=== PATIENT | male | born 1985 | race Caucasian/White ===

== ENCOUNTER 2020-09-14 12:29 | Outpatient (REF) | payer OTHER, SELFPAY ==
[2020-09-18 14:22] LABS: Acrosom Defect 23.5 %; Appearance Normal; Container Type 50 mL Conical; Double Forms 1.5 %; Head Shape Abnormal 21.5 %; Motile/Ejaculate 8.4 x10(6) (>=9.0); Motile/mL 1.4 x10(6) (>=6.0); Motility 15 % (>=40); Sperm/mL 9.2 x10(6) (>=15.0); Study Type Semen; Supravital Stain 32 % live (>=58); Tail Defect 42.5 %; pH 8.5 (>=7.2)
== END 2020-09-14 12:49 ==
LOC: LBN 12:29
PROVIDERS: PCP Student in an Organized Health Care Education/Training Program; Visit Provider Obstetrics & Gynecology Gynecology
DX: Z31.41 Encounter for fertility testing (principal)
CPT/HCPCS: 89240; 89310

== ENCOUNTER 2021-01-09 13:37 | Outpatient (CLI) | payer OTHER, SELFPAY ==
--- NOTE | 2021-01-09 13:00 | DI.RAD_ITS ---
Exam(s) XR KNEE RT 3V AP,LAT,DEANA EXAM: XR KNEE RT 3V AP,LAT,DEANA CLINICAL HISTORY: RIGHT KNEE PAIN. TECHNIQUE: 2D digital imaging was performed. COMPARISON: No exams were available for comparison FINDINGS: BONES: No acute fracture is present. No bony destructive lesion is seen. JOINTS: The knee is normally aligned. No joint effusion is seen. Joint spaces are well maintained. There is a focal area of spurring at the medial patellar facet. There is spurring at the patellar t endon insertion on the tibial tubercle. SOFT TISSUE: Normal. IMPRESSION: Spurring at the medial patellar facet. DATA REPOSITORY: RADIATION DOSE DELIVERED:
== END 2021-01-09 13:38 | disposition home or self-care (01) ==
LOC: DIORS 13:38
PROVIDERS: PCP Student in an Organized Health Care Education/Training Program; Referring Provider Student in an Organized Health Care Education/Training Program; Visit Provider Student in an Organized Health Care Education/Training Program
DX: M25.561 Pain in right knee (principal); M25.761 Osteophyte, right knee
CPT/HCPCS: 73562

== ENCOUNTER 2021-03-09 03:24 | Outpatient (CLI) | payer OTHER, SELFPAY ==
[2021-03-09 07:37] LABS: Abs Immature Grans 0.02 10^3/uL (0.0-0.06); Absolute Basophil Count 0.02 10^3/uL (0.0-0.2); Absolute Eosinophil Count 0.07 10^3/uL (0.0-0.7); Absolute Lymphocyte Count 0.48 10^3/uL (1.2-3.4); Absolute Neutrophil Count 1.61 10^3/uL (1.2-6.7); Basophils % 0.7; Eosinophils % 2.4; HCT 46.2 % (40.0-50.0); HGB 15.8 g/dL (13.5-17.5); Immature Grans % 0.7; Lymphocytes % 16.6; MCH 29.9 pg (27.0-33.0); MCHC 34.2 % (32.0-36.0); MCV 87.5 fL (80-95); MPV 8.8 fL (8.0-11.0); Monocytes % 24.1; Neutrophils % 55.5; Nucleated RBC 0 %; Platelet Count 224 10^3/uL (130-400); RBC 5.28 10^6/uL (4.36-5.78); RDW 11.9 % (11.8-14.1); RDW-SD 38.4 fL
[2021-03-09 08:24] LABS: ALT 72 U/L (16-63); AST 35 U/L (15-37); Albumin 4.2 g/dL (3.4-5.0); Alkaline Phosphatase 76 U/L (46-116); Bilirubin, Direct 0.3 mg/dL (0.0-0.2); Bilirubin, Total 1.2 mg/dL (0.2-1.0)
[2021-03-09 21:47] LABS: Calculated LDL 70 mg/dL (<100); Cholesterol 167 mg/dL (<200); HDL Cholesterol 53 mg/dL (40-60); Triglyceride 221 mg/dL (<150)
[2021-03-12 11:18] LABS: Varicella IgG Antibody Positive (See Note)
[2021-06-28 14:51] LABS: Stratify JCV Antibody POSITIVE (Negative)
== END 2021-03-09 03:25 | disposition home or self-care (01) ==
LOC: LBO 03:24
PROVIDERS: PCP Student in an Organized Health Care Education/Training Program; Visit Provider Psychiatry & Neurology Neurology
DX: G35 Multiple sclerosis (principal); Z13.220 Encounter for screening for lipoid disorders
CPT/HCPCS: 36415; 80061; 80076; 86787; 85025

== ENCOUNTER 2021-03-22 03:04 | Outpatient (CLI) | payer OTHER, SELFPAY ==
--- NOTE | 2021-03-22 09:00 | DI.MRI_ITS ---
Exam(s) MR LUMBAR SPINE WO EXAM: MR LUMBAR SPINE WO CLINICAL HISTORY: Evaluate stenosis; compare to 2019 MRI,WORSENING BACK PAIN DESPITE PT,M54.5. TECHNIQUE: Multiplanar multisequence MRI of the Lumbar spine was performed. COMPARISON: There are no plain films lumbar spine available time this MRI interpretation FINDINGS: Five lumbar vertebrae are presumed. Conus medullaris is at L1-2 level. There is no evidence of conus mass nor subjacent clumping of intr athecal nerve roots to suggest arachnoiditis. The distal thecal sac appears unremarkable.There is no evidence of Tarlov intrasacral cysts nor other significant findings within the sacral canal Bones:There are no fractures nor ominous osseous lesions in the lumbar vertebral bodies and visualize d sacrum. There is no abnormal permeated of marrow pattern. With respect to the individual levels... T12-L1: Unremarkable L1-2: Normal disc height and signal. No disc herniation nor central canal stenosis.No foraminal steno sis L2-3: Normal disc height. No disc herniation nor central canal stenosis.No foraminal stenosis.No face t arthropathy. L3-4: Normal disc height and signal. There is, however, asymmetric lateral bulging of the annulus la terally on the left side at and lateral to the exiting left neural foramen. There does not appear to be prominent left-sided foraminal stenosis at this level. No foraminal stenosis on the right side. Central canal dimensions are lower normal. Mild degenerative changes in the facet joints. . L4-5: Preserved disc height and signal. Broad relatively symmetrical annular bulging which results i n moderate central spinal canal stenosis which is related to the broad annular bulging, short AP dime nsions of the pedicles and degenerative changes in the facet joints. There is no prominent ligamentu m flavum hypertrophy. There is mild-moderate bilateral foraminal stenosis at this level mostly relat ed to the bulging annulus within both exiting neural foramina. L5-S1: Preserved disc height and signal. There is annular bulging and a superimposed central subliga mentous disc bulge which contacts the anterior thecal sac but without prominent indentation of the th ecal sac. Central canal dimensions are lower limits normal at this level. There is an element of mi ld-moderate foraminal stenosis on the left side at this level. Minimal if any significant foraminal stenosis on the right side. No prominent facet arthropathy. Soft tissues: paraspinal soft tissues appear unremarkable. IMPRESSION: 1. Findings of the lower 3 levels as described above. 2. There is significant central spinal canal stenosis at L4-5 level which is due to a combination of broad annular bulging, short AP dimensions the pedicles, and degenerative changes in both facet joint s (no ligamentum flavum hypertrophy evident at this level). There is also mild-moderate bilateral fo raminal stenosis at this level. 3. Other findings at L3-4 and L5-S1 levels as described above. DATA REPOSITORY:
== END 2021-03-22 03:24 ==
PROVIDERS: PCP Student in an Organized Health Care Education/Training Program; Visit Provider Student in an Organized Health Care Education/Training Program
DX: M51.27 Other intervertebral disc displacement, lumbosacral region (principal); M48.07 Spinal stenosis, lumbosacral region
CPT/HCPCS: 72148

== ENCOUNTER 2022-01-07 22:23 | Emergency (ER) | payer OTHER, SELFPAY ==
[2022-01-07 22:31] VITALS: BP 154/97; PULSE 72; RESP 17; TEMP 37; O2SAT 97
[2022-01-07 22:38] VITALS: RESP 18
--- NOTE | 2022-01-07 22:55 | ED.GENADUL_ITS ---
Discharge Plan Disposition Patient Disposition: HOME Condition: Stable Discharge Details Clinical Impression: COVID-19 Primary Care Provider: Temitope Courtney ED Provider: Mao Meyer Home Meds and New Rx's Prescriptions: Continued coenzyme Q10 [CoQ-10] 100 mg capsule 300 mg PO DAILY multivitamin Tablet 1 tab PO DAILY omega-3 fatty acids [Fish Oil Concentrate] 1,000 mg capsule 1,000 mg PO DAILY alpha lipoic acid 50 mg capsule 50 mg PO DAILY PRN Gilenya 0.5 mg capsule 0.5 mg PO DAILY Qty: 14 3RF Rx Instructions: 2-week fill while awaiting mail order cholecalciferol (vitamin D3) 125 mcg (5,000 unit) capsule 125 mcg PO DAILY Qty: 90 0RF solifenacin [Vesicare] 5 mg tablet 5 mg PO DAILY Qty: 30 0RF Rx Instructions: continue per Neuro gabapentin 300 mg capsule 900 mg PO TID modafinil 100 mg tablet 100 mg PO DAILY PRN Discharge Instructions Instructions: COVID-19 (Coronavirus Disease 2019) (ED) Additional Instructions: Continue Paxlovid as directed. [id number] medications as directed for symptomatic control. Please watch for new or worsening symptoms and return to the ER for any concerns. I do recommend that you continue monitoring your O2 levels carefully, remember that it is natural for levels to dip a little while sleeping. I would be more concerned with a new O2 level consistently below 90%. I do recommend contacting her primary care provider tomorrow to discuss her ER visit and need for outpatient reevaluation. Medical Decision Making 37-year-old gentleman, non-smoker, fully vaccinated, diagnosed with COVID yesterday, started Paxlovid today, presents to the ER for an O2 sat of 91-92. He denies any shortness of breath. Clinically he appears well, nontoxic and his O2 sat is distantly 97-99% on room air. At this time I see no indication for further emergent evaluation such as laboratory values, x-ray, etc. He does not require supplemental oxygen or hospitalization at this time. Plan is to continue monitoring his O2, taking his Paxlovid, and symptomatic care. Standard discharge and return precautions were provided. Patient understands, is agreeable to this plan, and has no additional questions or concerns upon discharge. This documentation was generated using Dragon dictation system, please disregard any oddities of phrase or misspellings. Medical Records Medical records reviewed: Yes I reviewed the patient's medical records. HPI General Mode of arrival: ambulatory . Date/Time Provider Initiated Documentation: 01/07/22 22:33 . Limitations to Documentation: no limitations . Information obtained by: patient . HPI Narrative: This is a 37-year-old male, past medical history of MS, presenting to the ER for concern of hypoxia, noted his O2 levels to be 91-92% at home on room air. He was diagnosed with COVID yesterday, began taking Paxlovid today. Was told to seek medical attention if his O2 sats were below 93%. He states that his O2 sat was 91-92 primarily when he was sleeping. He states overall he feels better today than he did yesterday. Primary complaint is of nasal congestion. He reports fever is controlled with Tylenol and Motrin. He denies any chest pain, abdominal pain, pain or swelling in his legs. Related Data Home Medications Medication Instructions Recorded Confirmed alpha lipoic acid 50 mg capsule 50 mg PO DAILY PRN 02/22/20 01/07/22 coenzyme Q10 100 mg capsule 300 mg PO DAILY 02/22/20 01/07/22 (CoQ-10) multivitamin 1 tab PO DAILY 02/22/20 01/07/22 omega-3 fatty acids 1,000 mg 1,000 mg PO DAILY 02/22/20 01/07/22 capsule (Fish Oil Concentrate) fingolimod 0.5 mg capsule (Gilenya) 0.5 mg PO DAILY #14 caps 03/02/20 01/07/22 cholecalciferol (vitamin D3) 125 125 mcg PO DAILY #90 caps 03/07/20 01/07/22 mcg (5,000 unit) capsule solifenacin 5 mg tablet (Vesicare) 5 mg PO DAILY #30 tabs 06/22/21 01/07/22 gabapentin 300 mg capsule 900 mg PO TID 01/07/22 01/07/22 modafinil 100 mg tablet 100 mg PO DAILY PRN 01/07/22 01/07/22 Previous Rx's Medication Instructions Recorded fingolimod 0.5 mg capsule (Gilenya) 0.5 mg PO DAILY #14 caps 03/02/20 cholecalciferol (vitamin D3) 125 125 mcg PO DAILY #90 caps 03/07/20 mcg (5,000 unit) capsule solifenacin 5 mg tablet (Vesicare) 5 mg PO DAILY #30 tabs 06/22/21 Allergies Allergy/AdvReac Type Severity Reaction Status Date / Time No Known Allergies Allergy Verified 01/07/22 22:36 General Stated Complaint: GenMedical MADDISON: 3 Review of Systems Constitutional Constitutional: Reports fever(s) ENT Ears, Nose, Mouth, and Throat: Denies sore throat Cardiovascular Cardiovascular: Denies chest pain and Reports dyspnea Respiratory Respiratory: Reports cough and Reports dyspnea Gastrointestinal Gastrointestinal: Denies abdominal pain, Denies nausea and Denies vomiting Integumentary/Breasts Skin/Breast: Denies rash [facility] All Active Problems (Updated 01/07/22 @ 23:05 by CARLOS Andrade) COVID-19 (Acute) SARS-CoV-2 positive (Acute ~01/06/22) Liver injury (Acute) possible 2' MS meds .. check q 3mos per Neuro ([facility]) Snoring (Acute) Mentioned by ; Ten when exhausted or sleeping on back. 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 Tanner Derm [facility] – [place] [facility] Angiofibroma of skin of nose (Acute) Dr. Tanner 04/19/2020 [facility] watch and wait [facility] Elevated blood pressure reading (Acute) Lesion of face (Acute) Right knee pain (Acute) Pt reports no cartilage per XR and PT (?) [ ] XR Report Considering Ortho ref. Leukopenia (Acute) with neutropenia and lymphocytopenia Multiple sclerosis (Chronic ~2014) Low back pain (Acute) Lumbar Radicular Syndrome.. Apparent stenosis evident (working with PT who sees nerve impingement symptoms) Medical History Abnormal semen analysis Surgical History History of wisdom tooth extraction Family History Maternal Grandfather Stomach cancer Non-Hodgkin lymphoma Maternal Grandmother Stomach cancer Non-Hodgkin lymphoma Depression Mother Skin cancer Depression Meniere disease Sister Depression Father Prostate cancer Maternal Uncle Alcohol use disorder Sister Bulimia Paternal Grandmother Dementia Social History Smoking/Tobacco Use Status: Former Tobacco Use Quit Date: 07/25/19 Tobacco: How many years used: 1 Smoking risk assessment performed?: Yes Alcohol Intake: current Alcohol Intake frequency: 0-2 drinks per day Alcohol type: beer, wine and hard liquor Drug use: Never Substance use type: does not use Adopted: No Caregiver/Support person: No Foster care: No Household members: spouse Housing: house Number of Children: 0 number of grandchildren: 0 Communication Needs: None Education Level: college Details: Bachelor's Do you need help understanding health information?: Never 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, [employer] Sexually active: Yes Do you think of yourself as: straight/heterosexual Current gender identity: male What is your relationship status?: How often do you talk on the phone with friends or family?: once per week How often do you get together with friends or relatives?: once per week Do you belong to any clubs or organized social groups?: no Panel score (0-1 are the most socially isolated patients): 1 What type of physical activity do you participate in: walking, bicycling, swimming, resistance training and yoga Duration: 45-60 minutes/day Frequency: daily Radha/Taoist: None Special radha needs: No Seatbelt use: always Helmet use: Yes Drive intox or ride w/intox cryogenic transport driver: No Working smoke detector in home: Yes Fire extinguisher in home: Yes Carbon monox detector in home: Yes Firearms in home: Yes Firearms unloaded and locked: Yes Do you feel safe at home: Yes Do you feel safe in your relationship?: Yes Exam Const General: cooperative, healthy appearing, comfortable and no acute distress Orientation: alert and awake HENMT Head: normal to inspection, normocephalic and atraumatic Face and sinus: normal facial exam Mouth: moist mucous membranes Throat: posterior oropharynx normal Eyes General: appearance normal, both eyes and all related structures Conjunctivae: conjunctivae normal Neck Neck: normal visual inspection, full ROM, no meningeal signs, trachea midline and supple Resp Effort & Inspection: normal respiratory effort and able to speak in complete sentences Auscultation: clear to auscultation bilaterally Cardio Rate: regular rate Rhythm: regular rhythm Skin General skin exam: no rashes or lesions noted Neuro General: patient alert, patient awake, moves all extremities and no focal motor deficits Cognition: normal cognition Speech: speech normal Gait: normal gait Motor: muscle tone normal throughout Sensory Exam: no sensory deficits noted Extrem General: normal to inspection, full ROM, capillary refill normal, no pedal edema and no calf tenderness Psych Appearance: grossly normal Mental Status: mental status grossly normal Course Vital Signs Vital signs: Vital Signs Temperature 37.0 C 01/07/22 22:31 Pulse 72 01/07/22 22:31 Respiratory Rate 17 01/07/22 22:31 Blood Pressure 154/97 H 01/07/22 22:31 Pulse Oximetry 97 01/07/22 22:31 Temperature 37.0 C 01/07/22 22:31 Temperature Source Skin 01/07/22 22:31 Pulse 72 01/07/22 22:31 Respiratory Rate 18 01/07/22 22:38 Respiratory Effort Non-Labored 01/07/22 22:38 Respiratory Depth Normal 01/07/22 22:38 Respiratory Pattern Normal 01/07/22 22:38 Blood Pressure 154/97 H 01/07/22 22:31 Blood Pressure Position Sitting 01/07/22 22:31 Pulse Oximetry 97 01/07/22 22:31 Oxygen Delivery Method Room Air 01/07/22 22:31 Oxygen Flow Rate 0 01/07/22 22:31 Pain Level 8 01/07/22 22:31 Comment 01/07/22 22:31 PAWSS Have you Been Recently Intoxicated or Drunk Within the Last 30 days?: No Have you Ever Experienced Previous Episodes of Alcohol Withdrawal?: No Have you ever Experienced Withdrawal Seizures?: No Have you ever Experienced Delirium Tremens(DT)s?: No Have you ever undergone Alcohol Rehabilitation Treatment (i.e, inpt ot ou tpatient treatment programs)?: No Have you ever Experienced Blackouts?: No Have you ever Combined Alcohol with other Downers within the last 90 days?: No Have you ever Combined Alcohol with any other Substance of Abuse during the last 90 days?: No Positive Blood Alcohol level on Presentation? [PCS.BAL]: No Evidence of Increased Autonomic Activity (i.e. HR>120, tremor, sweating, agitation, nausea)?: No Result: 0
[2022-01-07 23:08] VITALS: PULSE 72; RESP 17; O2SAT 97
[2022-01-07 23:10] VITALS: BP 154/97; PULSE 72; RESP 17; TEMP 37; O2SAT 97
== END 2022-01-07 23:16 | disposition home or self-care (01) ==
PROVIDERS: Emergency Provider Physician Assistant; PCP Student in an Organized Health Care Education/Training Program
DX: U07.1 COVID-19 (principal)
CPT/HCPCS: 99281; 99282

== ENCOUNTER 2022-10-21 14:19 | Outpatient (REF) | payer OTHER, SELFPAY ==
[2022-10-21 17:17] LABS: COVID-19 PCR Negative (Negative); Influenza A PCR Positive (Negative); Influenza B PCR Negative (Negative); RSV PCR Negative (Negative)
[2022-10-21 17:20] LABS: Source Nasopharynx
== END 2022-10-21 14:20 | disposition home or self-care (01) ==
LOC: LBN 14:19
PROVIDERS: PCP Student in an Organized Health Care Education/Training Program; Referring Provider Nurse Practitioner; Visit Provider Nurse Practitioner
DX: R05.9 Cough, unspecified (principal); R09.81 Nasal congestion; R50.9 Fever, unspecified; R52 Pain, unspecified
CPT/HCPCS: 87637

== ENCOUNTER 2023-02-26 20:45 | Emergency (ER) | payer OTHER, SELFPAY ==
[2023-02-26 20:59] VITALS: BP 136/79; PULSE 86; RESP 20; TEMP 37.6; O2SAT 96
[2023-02-26 21:57] LABS: Abs Immature Grans 0.03 10^3/uL (0.0-0.06); Absolute Basophil Count 0.01 10^3/uL (0.0-0.2); Absolute Eosinophil Count 0.01 10^3/uL (0.0-0.7); Absolute Lymphocyte Count 0.45 10^3/uL (1.2-3.4); Absolute Monocyte Count 0.66 10^3/uL (0.1-0.8); Absolute Neutrophil Count 1.63 10^3/uL (1.2-6.7); Basophils % 0.4; Eosinophils % 0.4; HCT 40.6 % (40.0-50.0); HGB 14.3 g/dL (13.5-17.5); Immature Grans % 1.1; Lymphocytes % 16.1; MCH 29.7 pg (27.0-33.0); MCHC 35.2 % (32.0-36.0); MCV 84 fL (80-95); MPV 8.7 fL (8.0-11.0); Monocytes % 23.7; Neutrophils % 58.3; Platelet Count 160 10^3/uL (130-400); RBC 4.81 10^6/uL (4.36-5.78); RDW 12.1 % (11.8-14.1); RDW-SD 36.9 fL; WBC 2.79 10^3/uL (4.4-10.8)
--- NOTE | 2023-02-26 22:00 | DI.CT_ITS ---
Exam(s) CT HEAD WO EXAM: CT HEAD WO CLINICAL HISTORY: Headache Fever. TECHNIQUE: Imaging Protocol: Axial computed tomography images with coronal and sagittal reformatted images were created and reviewed COMPARISON: No exams were available for comparison FINDINGS: Ventricles and Extra axial spaces: Normal in size and morphology for the patient's age. Hemorrhage: None. Cerebral parenchyma: Normal. Midline shift: None. Brainstem/Cerebellum: Normal. Calvarium: Normal. Visualized Paranasal sinuses/Mastoids: Clear. Soft Tissues: Unremarkable. IMPRESSION: No acute intracranial process. RADIATION DOSE DELIVERED: 916.88mGy.cm Total DLP DATA REPOSITORY: All CT scans at this facility are submitted to the National Radiology Data Registry (NRDR) Dose Index Registry (DIR) with the [employer] ([employer]). RADIATION OPTIMIZATION: All CT scans at this facility use at least one of these dose optimization te chniques: automated exposure control; mA and/or kV adjustment per patient size (includes targeted exa ms where dose is matched to clinical indication); or iterative reconstruction.
--- NOTE | 2023-02-26 22:00 | DI.RAD_ITS ---
Exam(s) XR CHEST 2V PA LATERAL EXAM: XR CHEST 2V PA LATERAL CLINICAL HISTORY: Fever TECHNIQUE: 2D digital imaging was performed. COMPARISON: No exams were available for comparison FINDINGS: HEART: Normal size. Aorta: Not dilated. PULMONARY VASCULATURE: Normal. LUNGS: Clear. PLEURAL SPACE: No pleural effusion or pneumothorax. BONE:Unremarkable for age. IMPRESSION: No acute abnormality. DATA REPOSITORY: RADIATION DOSE DELIVERED:
[2023-02-26 22:07] LABS: ALT 60 U/L (16-63); AST 38 U/L (15-37); Albumin 3.7 g/dL (3.4-5.0); Alkaline Phosphatase 77 U/L (46-116); BUN 18 mg/dL (7-18); CREATININE 1.1 mg/dL (0.70-1.30); Chloride 103 mmol/L (98-107); Estimated GFR 88.12 (mL/min/1.73m2); Glucose 122 mg/dL (74-106); Magnesium 2.1 mg/dL (1.8-2.4); Potassium 3.4 mmol/L (3.5-5.1); Sodium 138 mmol/L (136-145); Total Protein 6.5 g/dL (6.4-8.2)
--- NOTE | 2023-02-26 22:13 | ED.GENADUL_ITS ---
Discharge Plan Disposition Patient Disposition: Home Condition: Stable Discharge Details Clinical Impression: Fever Primary Care Provider: Temitope Courtney ED Provider: Naeem Palencia Home Meds and New Rx's Prescriptions: New doxycycline hyclate 100 mg capsule 100 mg PO BID 14 Days Qty: 28 0RF Rx Instructions: Take one capsule by mouth twice daily x 14 days Continued albuterol sulfate [ProAir HFA] 90 mcg/actuation HFA aerosol inhaler 2 puff inhalation Q6H PRN (Reason: shortness of breath or wheezing) Qty: 8.5 1RF Rx Instructions: Trial twice a day x 1 week.. coenzyme Q10 [CoQ-10] 100 mg capsule 300 mg PO DAILY multivitamin Tablet 1 tab PO DAILY omega-3 fatty acids [Fish Oil Concentrate] 1,000 mg capsule 1,000 mg PO DAILY alpha lipoic acid 50 mg capsule 50 mg PO DAILY PRN Gilenya 0.5 mg capsule 0.5 mg PO DAILY Qty: 14 3RF Rx Instructions: 2-week fill while awaiting mail order cholecalciferol (vitamin D3) 125 mcg (5,000 unit) capsule 125 mcg PO DAILY Qty: 90 0RF modafinil 100 mg tablet 100 mg PO DAILY PRN magic mouthwash 15 ml PO TID Qty: 500 1RF Rx Instructions: Trial Gargle x 3 days (december repeat)(may swallow) Diphenhydramine (200mL)+Maalox(200mL)+Viscous Lidocaine(100mL) solifenacin 5 mg tablet See Rx Instructions .ROUTE .COMPLEX Qty: 90 3RF Dose Instruction: Take 1 tablet by mouth daily Rx Instructions: Take 1 tablet by mouth daily solifenacin 5 mg tablet 5 mg PO DAILY Discharge Instructions Instructions: Fever in Adults (ED) Additional Instructions: Follow up with primary care provider in 3-5 days. Return to ED sooner if any worsening or concerns. Increase oral fluids. Please take Tylenol or Ibuprofen with food every 4-6 hours as needed for pain and swelling. Please take the antibiotic as directed. You are given this while waiting for the tick and Lyme panel to result. Referrals: Temitope Courtney DO [Primary Care Provider] - 3 days Discharge Data Discharge Date/Time-TO BE ENTERED AT DEPARTURE: 02/27/23 03:20 Medical Decision Making 38-year-old male with past medical history of MS who is on immunosuppression medications presents ER with chief complaint of fever of 101.9 over the last couple of days. He also associates body aches stiff neck. He did take Tylenol prior to arrival he is afebrile upon arrival. He denies any sore throat ear pain diarrhea dysuria. He does endorse a small cough. He was sent here from [facility] for possible lumbar puncture due to his immunosuppression and sti ff neck and headache. Differential diagnosis includes but not limited to viral URI, meningitis, bacterial infection, pneumonia, Lyme disease. CBC shows white blood cell count of 2.79, potassium slightly low at 3.4 glucose 122 AST 38 urinalysis within normal limits negative strep swab negative COVID flu RSV. CT head and chest x-ray ordered. No evidence of any intracranial abnormality. No infiltration chest x-ray within normal limits. Discussed risk and benefits of lumbar puncture with patient who verbalized understanding. He has had 1 before. Patient was consented. Lumbar puncture performed with the assistance of Dr. Palencia ER doc, procedure successful patient laying flat. He was given milligram of midazepam prior to procedure. Will treat empirically for Lyme, patient has been hiking. Care is to be handed off to ER provider Dr. Palencia pending CSF results and most likely disposition of discharge. 100 mg of doxycycline ordered at this time. This text was generated using [employer] dictation system, please disregard any oddities of phrase or misspellings. Medical Records Medical records reviewed: Yes I reviewed the patient's medical records. Lab Data Lab results reviewed: Yes I reviewed the patient's lab results. Labs: 02/26/23 23:41 Pharynx Group A Streptococcus Culture - Pending 02/26/23 21:35 Blood Blood Culture - Pending 02/26/23 21:44 Blood Blood Culture - Pending Laboratory Tests Range/Units 02/26/23 02/26/23 02/26/23 21:35 21:35 22:25 WBC (4.4-10.8) 10^3/uL 2.79 L RBC (4.36-5.78) 10^6/uL 4.81 Hgb (13.5-17.5) g/dL 14.3 Hct (40.0-50.0) % 40.6 MCV (80-95) fL 84 MCH (27.0-33.0) pg 29.7 MCHC (32.0-36.0) % 35.2 RDW (11.8-14.1) % 12.1 Plt Count (130-400) 10^3/uL 160 MPV (8.0-11.0) fL 8.7 Immature Gran % 1.1 Neutrophils % 58.3 Lymphocytes % 16.1 Monocytes % 23.7 Eosinophils % 0.4 Basophils % 0.4 Nucleated RBC % (0.0-0.3) % 0.0 Absolute Neutrophils (1.2-6.7) 10^3/uL 1.63 Absolute Lymphocytes (1.2-3.4) 10^3/uL 0.45 L Absolute Monocytes (0.1-0.8) 10^3/uL 0.66 Absolute Eosinophils (0.0-0.7) 10^3/uL 0.01 Absolute Basophils (0.0-0.2) 10^3/uL 0.01 Sodium (136-145) mmol/L 138 Potassium (3.5-5.1) mmol/L 3.4 L Chloride (98-107) mmol/L 103 Carbon Dioxide (21.0-32.0) mmol/L 27.0 Anion Gap (3-11) mmol/L 8.0 BUN (7-18) mg/dL 18 Creatinine (0.70-1.30) mg/dL 1.1 Est GFR (CKD-EPI 2020) (mL/min/1.73m2) 88.12 Glucose (74-106) mg/dL 122 H Calcium (8.5-10.1) mg/dL 9.0 Magnesium (1.8-2.4) mg/dL 2.1 Total Bilirubin (0.2-1.0) mg/dL 1.0 AST (15-37) U/L 38 H ALT (16-63) U/L 60 Alkaline Phosphatase (46-116) U/L 77 Total Protein (6.4-8.2) g/dL 6.5 Albumin (3.4-5.0) g/dL 3.7 Urine Color (Yellow) Yellow Urine Clarity (Clear) Clear Urine pH (5-8) 5.5 Ur Specific [place] (1.005-1.025) <= 1.005 Urine Protein (Negative) mg/dL Negative Urine Ketones (Negative) mg/dL Negative Urine Blood (Negative) Negative Urine Nitrite (Negative) Negative Urine Bilirubin (Negative) Negative Urine Urobilinogen (Up to 0.2) mg/dL 0.2 Ur Leukocyte Esterase (Negative) Negative Urine Glucose (Negative) mg/dL Negative COVID-19 Source SARS-CoV-2 (PCR) (Negative) Influenza Type A (PCR) (Negative) Influenza Type B (PCR) (Negative) RSV (PCR) (Negative) Range/Units 02/26/23 22:25 WBC (4.4-10.8) 10^3/uL RBC (4.36-5.78) 10^6/uL Hgb (13.5-17.5) g/dL Hct (40.0-50.0) % MCV (80-95) fL MCH (27.0-33.0) pg MCHC (32.0-36.0) % RDW (11.8-14.1) % Plt Count (130-400) 10^3/uL MPV (8.0-11.0) fL Immature Gran % Neutrophils % Lymphocytes % Monocytes % Eosinophils % Basophils % Nucleated RBC % (0.0-0.3) % Absolute Neutrophils (1.2-6.7) 10^3/uL Absolute Lymphocytes (1.2-3.4) 10^3/uL Absolute Monocytes (0.1-0.8) 10^3/uL Absolute Eosinophils (0.0-0.7) 10^3/uL Absolute Basophils (0.0-0.2) 10^3/uL Sodium (136-145) mmol/L Potassium (3.5-5.1) mmol/L Chloride (98-107) mmol/L Carbon Dioxide (21.0-32.0) mmol/L Anion Gap (3-11) mmol/L BUN (7-18) mg/dL Creatinine (0.70-1.30) mg/dL Est GFR (CKD-EPI 2020) (mL/min/1.73m2) Glucose (74-106) mg/dL Calcium (8.5-10.1) mg/dL Magnesium (1.8-2.4) mg/dL Total Bilirubin (0.2-1.0) mg/dL AST (15-37) U/L ALT (16-63) U/L Alkaline Phosphatase (46-116) U/L Total Protein (6.4-8.2) g/dL Albumin (3.4-5.0) g/dL Urine Color (Yellow) Urine Clarity (Clear) Urine pH (5-8) Ur Specific [place] (1.005-1.025) Urine Protein (Negative) mg/dL Urine Ketones (Negative) mg/dL Urine Blood (Negative) Urine Nitrite (Negative) Urine Bilirubin (Negative) Urine Urobilinogen (Up to 0.2) mg/dL Ur Leukocyte Esterase (Negative) Urine Glucose (Negative) mg/dL COVID-19 Source Nasopharynx SARS-CoV-2 (PCR) (Negative) Negative Influenza Type A (PCR) (Negative) Negative Influenza Type B (PCR) (Negative) Negative RSV (PCR) (Negative) Negative HPI General Mode of arrival: ambulatory . Date/Time Provider Initiated Documentation: 02/26/23 21:03 . Limitations to Documentation: no limitations . Information obtained by: patient, RN/MD (Dr. C[facility]denas from [facility]), RN notes reviewed and old records reviewed . HPI Narrative: 38-year-old male with past medical history of MS who is on immunosuppression medications presents ER with chief complaint of fever of 101.9 over the last couple of days. He also associates body aches stiff neck. He did take Tylenol prior to arrival he is afebrile upon arrival. He denies any sore throat ear pain diarrhea dysuria. He does endorse a small cough. He was sent here from [facility] for possible lumbar puncture due to his immunosuppression and stiff neck and headache. Related Data Home Medications Medication Instructions Recorded Confirmed alpha lipoic acid 50 mg capsule 50 mg PO DAILY PRN 02/22/20 02/27/23 coenzyme Q10 100 mg capsule 300 mg PO DAILY 02/22/20 02/27/23 (CoQ-10) multivitamin 1 tab PO DAILY 02/22/20 02/27/23 omega-3 fatty acids 1,000 mg 1,000 mg PO DAILY 02/22/20 02/27/23 capsule (Fish Oil Concentrate) fingolimod 0.5 mg capsule (Gilenya) 0.5 mg PO DAILY #14 caps 03/02/20 02/27/23 cholecalciferol (vitamin D3) 125 125 mcg PO DAILY #90 caps 03/07/20 02/27/23 mcg (5,000 unit) capsule modafinil 100 mg tablet 100 mg PO DAILY PRN 01/07/22 02/27/23 albuterol sulfate 90 mcg/actuation 2 puff inhalation Q6H PRN 01/11/22 02/27/23 aerosol inhaler (ProAir HFA) shortness of breath or wheezing #8.5 grams magic mouthwash 15 ml PO TID sore throat #500 mL 01/14/22 10/21/22 solifenacin 5 mg tablet See Rx Instructions .Route 10/04/22 10/21/22 .COMPLEX #90 tabs doxycycline hyclate 100 mg capsule 100 mg PO BID 14 days #28 caps 02/27/23 solifenacin 5 mg tablet 5 mg PO DAILY 02/27/23 02/27/23 Previous Rx's Medication Instructions Recorded fingolimod 0.5 mg capsule (iMove) 0.5 mg PO DAILY #14 caps 03/02/20 cholecalciferol (vitamin D3) 125 125 mcg PO DAILY #90 caps 03/07/20 mcg (5,000 unit) capsule albuterol sulfate 90 mcg/actuation 2 puff inhalation Q6H PRN 01/11/22 aerosol inhaler (ProAir HFA) shortness of breath or wheezing #8.5 grams magic mouthwash 15 ml PO TID sore throat #500 mL 01/14/22 solifenacin 5 mg tablet See Rx Instructions .Route 10/04/22 .COMPLEX #90 tabs doxycycline hyclate 100 mg capsule 100 mg PO BID 14 days #28 caps 02/27/23 Allergies Allergy/AdvReac Type Severity Reaction Status Date / Time No Known Allergies Allergy Verified 10/21/22 14:08 General Stated Complaint: Fever MADDISON: 3 Review of Systems All systems reviewed & are unremarkable except as noted in HPI and below Constitutional Constitutional: Reports body ache(s), Reports fever(s) and Reports headache(s) ENT Ears, Nose, Mouth, and Throat: Reports headache(s) Neurologic Neurologic: Reports headache(s) PFSH All Active Problems (Updated 02/27/23 @ 00:48 by Awilda Packer NP) Fever (Acute) 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 check q 3mos per Neuro ([facility]) Snoring (Acute) Mentioned by ; Ten when exhausted or sleeping on back. 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 [place] [facility] [place] Angiofibroma of skin of nose (Acute) Dr. Tanner 04/19/2020 [facility] watch and wait [facility] Elevated blood pressure reading (Acute) Lesion of face (Acute) Right knee pain (Acute) Pt reports no cartilage per XR and PT (?) [ ] XR Report Considering Ortho ref. Leukopenia (Acute) with neutropenia and lymphocytopenia Multiple sclerosis (Chronic ~2014) Low back pain (Acute) Lumbar Radicular Syndrome.. Apparent stenosis evident (working with PT who sees nerve impingement symptoms) Medical History Abnormal semen analysis Surgical History History of wisdom tooth extraction Family History Maternal Grandfather Stomach cancer Non-Hodgkin lymphoma Maternal Grandmother Stomach cancer Non-Hodgkin lymphoma Depression Mother Skin cancer Depression Meniere disease Sister Depression Father Prostate cancer Maternal Uncle Alcohol use disorder Sister Bulimia Paternal Grandmother Dementia Social History Smoking/Tobacco Use Status: Former Tobacco Use Quit Date: 07/25/19 Tobacco: How many years used: 1 Smoking risk assessment performed?: Yes Alcohol Intake: current Alcohol Intake frequency: 0-2 drinks per day Alcohol type: beer, wine and hard liquor Drug use: Never Substance use type: does not use Adopted: No Caregiver/Support person: No Foster care: No Household members: spouse Housing: house Number of Children: 0 number of grandchildren: 0 Communication Needs: None Education Level: college Details: Bachelor's Do you need help understanding health information?: Never 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, [employer] Sexually active: Yes Do you think of yourself as: straight/heterosexual Current gender identity: male What is your relationship status?: How often do you talk on the phone with friends or family?: once per week How often do you get together with friends or relatives?: once per week Do you belong to any clubs or organized social groups?: no Panel score (0-1 are the most socially isolated patients): 1 What type of physical activity do you participate in: walking, bicycling, swimming, resistance training and yoga Duration: 45-60 minutes/day Frequency: daily Radha/Anabaptist: None Special radha needs: No Seatbelt use: always Helmet use: Yes Drive intox or ride w/intox m48/m60 tank driver: No Working smoke detector in home: Yes Fire extinguisher in home: Yes Carbon monox detector in home: Yes Firearms in home: Yes Firearms unloaded and locked: Yes Do you feel safe at home: Yes Do you feel safe in your relationship?: Yes Exam Narrative Exam Narrative: Constitutional: Alert and oriented x3. Appears stated age. Normal body habitus. Head: Normocephalic, no trauma. Eyes: Pupils PERRL, Red reflex noted, EOM's intact. Eyelids symmetrical without lesions, discharge, or swelling. ENT: Bilateral TM's WNL, External ear normal to inspection, no mastoid TTP, swelling, or erythema, Nasal turbinates WNL, no nasal discharge. Normal dentition, Posterior pharynx WNL, no exudate. Chest: RRR, Normal S1, S2, distal pulses intact. Resp: Lungs clear to auscultation bilaterally, no wheezes, rales, or rhonchi. Abdomen: Soft, non-distended, Normoactive bowel sounds all 4 quads. Musculoskeletal: Normal gait, 5/5 strength to all four extremities. Skin: No suspicious rashes or lesions. Capillary refill less than 2 sec. Neurologic: Cranial nerves II-XII intact. Alert and oriented x 3. Motor: No deficits noted. Sensory: Intact bilaterally all 4 extremities. Reflexes: DTR's intact bilaterally.. Hematologic/Lymphatic: No ecchymosis, no lymphadenopathy. Course Vital Signs Vital signs: Vital Signs Temperature 37.6 C 02/26/23 20:59 Pulse 86 07/05/23 20:59 Respiratory Rate 20 02/26/23 20:59 Blood Pressure 136/79 02/26/23 20:59 Pulse Oximetry 96 02/26/23 20:59 Temperature 37.6 C 02/26/23 20:59 Temperature Source Oral 02/26/23 20:59 Pulse 86 02/26/23 20:59 Respiratory Rate 20 02/26/23 20:59 Blood Pressure 136/79 02/26/23 20:59 Blood Pressure Position Sitting 02/26/23 20:59 Pulse Oximetry 96 02/26/23 20:59 Oxygen Delivery Method Room Air 02/26/23 20:59 Oxygen Flow Rate 0 02/26/23 20:59 Lab/Test Results Lab/Test Results: 02/26/23 21:35 Blood Blood Culture - Pending 02/26/23 21:44 Blood Blood Culture - Pending Laboratory Tests Range/Units 02/26/23 02/26/23 21:35 21:35 WBC (4.4-10.8) 10^3/uL 2.79 L RBC (4.36-5.78) 10^6/uL 4.81 Hgb (13.5-17.5) g/dL 14.3 Hct (40.0-50.0) % 40.6 MCV (80-95) fL 84 MCH (27.0-33.0) pg 29.7 MCHC (32.0-36.0) % 35.2 RDW (11.8-14.1) % 12.1 Plt Count (130-400) 10^3/uL 160 MPV (8.0-11.0) fL 8.7 Immature Gran % 1.1 Neutrophils % 58.3 Lymphocytes % 16.1 Monocytes % 23.7 Eosinophils % 0.4 Basophils % 0.4 Nucleated RBC % (0.0-0.3) % 0.0 Absolute Neutrophils (1.2-6.7) 10^3/uL 1.63 Absolute Lymphocytes (1.2-3.4) 10^3/uL 0.45 L Absolute Monocytes (0.1-0.8) 10^3/uL 0.66 Absolute Eosinophils (0.0-0.7) 10^3/uL 0.01 Absolute Basophils (0.0-0.2) 10^3/uL 0.01 Sodium (136-145) mmol/L 138 Potassium (3.5-5.1) mmol/L 3.4 L Chloride (98-107) mmol/L 103 Carbon Dioxide (21.0-32.0) mmol/L 27.0 Anion Gap (3-11) mmol/L 8.0 BUN (7-18) mg/dL 18 Creatinine (0.70-1.30) mg/dL 1.1 Est GFR (CKD-EPI 2020) (mL/min/1.73m2) 88.12 Glucose (74-106) mg/dL 122 H Calcium (8.5-10.1) mg/dL 9.0 Magnesium (1.8-2.4) mg/dL 2.1 Total Bilirubin (0.2-1.0) mg/dL 1.0 AST (15-37) U/L 38 H ALT (16-63) U/L 60 Alkaline Phosphatase (46-116) U/L 77 Total Protein (6.4-8.2) g/dL 6.5 Albumin (3.4-5.0) g/dL 3.7 Procedures Lumbar Puncture Time Out Performed: Yes Patient Position: sitting upright/leaning forward Skin Prep: 0.5% Chlorhexidine/Alcohol Local Anesthetic: Lidocaine 1% Amount of anesthesia used (mL): 3 Spinal Needle Gauge: 20G Interspace Used: L4-L5 Fluid Initially Obtained: clear Complications: none Sign Out Sign Out Data: Sign Out Comment: Pending CSF results and most likely dispo DC. Last updated by Awilda Packre NP at 02/27/23 00:44
[2023-02-26 22:46] LABS: Bilirubin Negative (Negative); Blood Negative (Negative); Clarity Clear (Clear); Glucose Negative (Negative); Ketones Negative (Negative); Leukocyte Esterase Negative (Negative); Nitrite Negative (Negative); Specific Gravity <= 1.005 (1.005-1.025); Urobilinogen 0.2 mg/dL (Up to 0.2); pH 5.5 (5-8)
--- NOTE | 2023-02-26 23:02 | DI.VRAD_ITS ---
PROCEDURE INFORMATION: Exam: CT Head Without Contrast Exam date and time: 02/26/2023 10:55 PM Age: 38 years old Clinical indication: Pain; Fever; Headache not specified; Additional info: Fever, headache TECHNIQUE: Imaging protocol: Computed tomography of the head without contrast. Radiation optimization: All CT scans at this facility use at least one of these dose optimization techniques: automated exposure control; mA and/or kV adjustment per patient size (includes targeted exams where dose is matched to clinical indication); or iterative reconstruction. COMPARISON: No relevant prior studies available. FINDINGS: Brain: Mild volume loss No hemorrhage. Unremarkable white matter. No mass effect. Cerebral ventricles: No ventriculomegaly. Paranasal sinuses: Visualized sinuses are unremarkable. No fluid levels. Mastoid air cells: Visualized mastoid air cells are well aerated. Bones/joints: Unremarkable. No acute fracture. Soft tissues: Unremarkable. IMPRESSION: No acute intracranial abnormality. Dictated and Authenticated by: Wolf Cole MD. Ordering:BENJAMIN Kaiser MD
--- NOTE | 2023-02-26 23:04 | DI.VRAD_ITS ---
PROCEDURE INFORMATION: Exam: XR Chest Exam date and time: 02/26/2023 10:57 PM Age: 38 years old Clinical indication: Fever and other: Headache; Additional info: Fever, headache TECHNIQUE: Imaging protocol: Radiologic exam of the chest. Views: 2 views. COMPARISON: No relevant prior studies available. FINDINGS: Lungs: Unremarkable. No consolidation. Pleural spaces: Unremarkable. No pleural effusion. No pneumothorax. Heart/Mediastinum: Moderately tortuous aorta. No cardiomegaly. Bones/joints: Unremarkable. IMPRESSION: No acute findings. Moderately tortuous aorta. Correlate for history of hypertension Dictated and Authenticated by: Wolf Cole MD. Ordering:BENJAMIN Kaiser MD
[2023-02-26 23:13] LABS: COVID-19 PCR Negative (Negative); Influenza A PCR Negative (Negative); Influenza B PCR Negative (Negative); RSV PCR Negative (Negative)
[2023-02-26 23:15] LABS: Source Nasopharynx
[2023-02-26] MEDS: Potassium Chloride 20 MEQ TABCR 40 MEQ PO (23:50)
--- NOTE | 2023-02-27 00:13 | W.EDPROG ---
Date of service: 02/27/23 Time of Service: 00:13 Medical Decision Making I saw this patient in conjunction with his advanced practitioner. Please see her complete note for details. In brief this is an immune compromised 38-year-old male with history of multiple sclerosis on outpatient fingolimod now in the emergency department in setting of fevers stiff neck and body ache associated with chills. Patient is overall well-appearing. He does have risk factors for Lyme disease. He does have leukopenia at baseline. No thrombocytopenia. No LFT derangements. Urinalysis negative for UTI. Viral swab negative. He will have CSF fluids run after a successful lumbar puncture which was completed on first past success. Patient had a negative CT head with no signs of any abnormalities. He had unremarkable chest x-ray. I was present for the entire lumbar puncture which was initiated by the patient's advanced practitioner. 1:24 AM Total CSF protein mildly elevated at 53 mg/dL. 2 AM Normal CSF glucose. 5 AM There is a slight delay in results being obtained from the patient's CSF analysis. Given his overall well appearance I elected to discharge him and told him that I will call to follow-up with the results. His CSF showed only 1 WBC and normal neutrophils with slightly decreased lymphocytes. The Gram stain on the patient's CSF is still pending. We will sign this out to the oncoming daytime provider to follow-up. Thus far his results are certainly not consistent with bacterial meningitis. It is certainly possible that he could have aseptic meningitis. He had no neurological deficits to suggest benefit from acyclovir. I will have the patient seen in the next day by his primary care provider. Health community health navigator Jade will help to arrange follow-up within the next 24 hours. Sign Out Sign Out Data: Sign Out Comment: Pending CSF results and most likely dispo DC. Last updated by Awilda Packer NP at 02/27/23 00:44 Discharge Plan Disposition Patient Disposition: Home Condition: Stable Discharge Details Clinical Impression: Fever Primary Care Provider: Temitope Courtney ED Provider: Naeem Palencia Home Meds and New Rx's Prescriptions: New doxycycline hyclate 100 mg capsule 100 mg PO BID 14 Days Qty: 28 0RF Rx Instructions: Take one capsule by mouth twice daily x 14 days Continued albuterol sulfate [ProAir HFA] 90 mcg/actuation HFA aerosol inhaler 2 puff inhalation Q6H PRN (Reason: shortness of breath or wheezing) Qty: 8.5 1RF Rx Instructions: Trial twice a day x 1 week.. coenzyme Q10 [CoQ-10] 100 mg capsule 300 mg PO DAILY multivitamin Tablet 1 tab PO DAILY omega-3 fatty acids [Fish Oil Concentrate] 1,000 mg capsule 1,000 mg PO DAILY alpha lipoic acid 50 mg capsule 50 mg PO DAILY PRN Gilenya 0.5 mg capsule 0.5 mg PO DAILY Qty: 14 3RF Rx Instructions: 2-week fill while awaiting mail order cholecalciferol (vitamin D3) 125 mcg (5,000 unit) capsule 125 mcg PO DAILY Qty: 90 0RF modafinil 100 mg tablet 100 mg PO DAILY PRN magic mouthwash 15 ml PO TID Qty: 500 1RF Rx Instructions: Trial Gargle x 3 days (may repeat)(may swallow) Diphenhydramine (200mL)+Maalox(200mL)+Viscous Lidocaine(100mL) solifenacin 5 mg tablet See Rx Instructions .ROUTE .COMPLEX Qty: 90 3RF Dose Instruction: Take 1 tablet by mouth daily Rx Instructions: Take 1 tablet by mouth daily solifenacin 5 mg tablet 5 mg PO DAILY Discharge Instructions Instructions: Fever in Adults (ED) Additional Instructions: Follow up with primary care provider in 3-5 days. Return to ED sooner if any worsening or concerns. Increase oral fluids. Please take Tylenol or Ibuprofen with food every 4-6 hours as needed for pain and swelling. Please take the antibiotic as directed. You are given this while waiting for the tick and Lyme panel to result. Referrals: Temitope Courtney DO [Primary Care Provider] - 3 days Discharge Data Discharge Date/Time-TO BE ENTERED AT DEPARTURE: 02/27/23 03:20
[2023-02-27] MEDS: Midazolam 2 MG/2 ML VIAL 1 MG IVP (00:19)
[2023-02-27 01:18] LABS: Glucose (CSF) 64 mg/dL (40-70); Total Protein (CSF) 53 mg/dL (15-45)
[2023-02-27] MEDS: Doxycycline Hyclate 100 MG CAP PO (01:19)
[2023-02-27 01:55] VITALS: BP 132/75; PULSE 64; RESP 16; O2SAT 99
[2023-02-27 02:16] LABS: Clarity Clear; Tube # 4; Xanthochromia Absent
[2023-02-27 02:26] LABS: RBC 1 /mm3 (0-5); WBC 1 /uL (0-5)
[2023-02-27 03:10] VITALS: BP 141/86; PULSE 63; RESP 20; TEMP 36.7; O2SAT 100
[2023-02-27 03:43] LABS: Lymphocytes CSF 20 % (40-80); Monocyte/Macrophage CSF 29 % (15-45); Neutrophils CSF 1 % (0-6)
--- NOTE | 2023-02-27 05:36 | NUR.NOTE ---
Referral to [facility] Temitope Courtney to f/u in 1-2 days for fever, concerns for meningitis.Nursing Note:
--- NOTE | 2023-02-27 07:41 | W.ED.FU ---
Date of service: 02/27/23 Time of Service: 07:41 Follow Up Plan: Patient had a negative Gram stain on microscopy. Patient will follow-up with his primary care provider in the next 24 hours.
[2023-02-28 11:21] LABS: Lyme Ab w Rflx to Lyme Confirm Negative (Negative)
[2023-02-28 15:48] LABS: Fluid Type CSF; Lactate Dehydrogenase (LD), BF 14 U/L
[2023-03-02 16:58] LABS: Anaplasma phagocytophilum Negative (Negative); B. miyamotoi PCR Negative (Negative); Babesia divergens/MO-1 Negative (Negative); Babesia duncani Negative (Negative); Babesia microti Negative (Negative); Ehrlichia chaffeensis Negative (Negative); Ehrlichia ewingii/canis Negative (Negative); Ehrlichia muris eauclairensis Negative (Negative)
== END 2023-02-27 03:20 | disposition home or self-care (01) ==
PROVIDERS: Registered Nurse Emergency; Emergency Provider Emergency Medicine; PCP Student in an Organized Health Care Education/Training Program
DX: R50.9 Fever, unspecified (principal); R51.9 Headache, unspecified; G35 Multiple sclerosis; Z79.60 Long term (current) use of unspecified immunomodulators and immunosuppressants
CPT/HCPCS: 62270; 80053; 82945; 87040; 87637; 87798; 87880; 89050; 89051; 99285; 70450; 71046; 81003; 83615; 83735; 84157; 85025; 86618; 87070; 87081; 87205; 99284; J2250

== ENCOUNTER → 2023-08-19 00:45 | Outpatient (CLI) | payer OTHER, SELFPAY ==
--- NOTE | 2023-08-19 09:20 | DI.RAD_ITS ---
Exam(s) XR SCOLIOSIS T-L SPINE EXAM: XR SCOLIOSIS T-L SPINE CLINICAL HISTORY: Scoliosis evaluation. TECHNIQUE: 2D digital imaging was performed. COMPARISON: No exams were available for comparison FINDINGS: Scoliosis: There is a levoscoliosis with the apex at T12 of approximately 20 degrees. No hyperlordos is. Vertebrae: No anomalies seen. No hypertrophy is identified. Asymmetric left-sided disc space narrowi ng at L4-5. Remainder of the visualized osseous and soft tissue structures: No acute findings. IMPRESSION: Levoscoliosis of approximately 20 degrees. DATA REPOSITORY: RADIATION DOSE DELIVERED:
== END ==
PROVIDERS: PCP Student in an Organized Health Care Education/Training Program; Visit Provider Student in an Organized Health Care Education/Training Program
DX: M41.35 Thoracogenic scoliosis, thoracolumbar region (principal); R29.3 Abnormal posture
CPT/HCPCS: 72081

== ENCOUNTER 2023-10-11 08:19 | Emergency (ER) | payer OTHER, SELFPAY ==
[2023-10-11 08:23] VITALS: BP 178/112; PULSE 79; RESP 16; TEMP 36.5; O2SAT 100
--- NOTE | 2023-10-11 08:25 | W.ED.GENAD ---
HPI General Mode of arrival: ambulatory. Date/Time Provider Initiated Documentation: 10/11/23 08:21. Limitations to Documentation: no limitations. Information obtained by: patient. History of Present Illness 38 year old M presents to the emergency department with the chief complaint of dog bite face, described as severe, and is localized to the face. Patient started experiencing this minute(s) (30) and it has been constant. No relieving factors improve symptom(s), No exacerbating factors reported . Patient notes no other symptoms.. Patient did receive the following treatments prior to arrival, none Related Data Home Medications Medication Instructions Recorded Confirmed alpha lipoic acid 50 mg capsule 50 mg PO DAILY PRN 02/22/20 10/11/23 coenzyme Q10 100 mg capsule 300 mg PO DAILY 02/22/20 10/11/23 (CoQ-10) multivitamin 1 tab PO DAILY 02/22/20 10/11/23 omega-3 fatty acids 1,000 mg 1,000 mg PO DAILY 02/22/20 10/11/23 capsule (Fish Oil Concentrate) fingolimod 0.5 mg capsule ([employer]) 0.5 mg PO DAILY #14 caps 03/02/20 10/11/23 cholecalciferol (vitamin D3) 125 125 mcg PO DAILY #90 caps 03/07/20 10/11/23 mcg (5,000 unit) capsule modafinil 100 mg tablet 100 mg PO DAILY PRN 01/07/22 10/11/23 albuterol sulfate 90 mcg/actuation 2 puff inhalation Q6H PRN 01/11/22 10/11/23 aerosol inhaler (ProAir HFA) shortness of breath or wheezing #8.5 grams magic mouthwash 15 ml PO TID sore throat #500 mL 01/14/22 10/11/23 solifenacin 5 mg tablet See Rx Instructions .Route 10/04/22 10/11/23 .COMPLEX #90 tabs solifenacin 5 mg tablet 5 mg PO DAILY 02/27/23 10/11/23 cladribine(multiple sclerosis) 10 10 mg PO DAILY 10/11/23 10/11/23 mg tablet (Mavenclad (7 tablet pack)) duloxetine 60 mg capsule,delayed 60 mg PO DAILY 10/11/23 10/11/23 release Previous Rx's Medication Instructions Recorded fingolimod 0.5 mg capsule ([employer]) 0.5 mg PO DAILY #14 caps 03/02/20 cholecalciferol (vitamin D3) 125 125 mcg PO DAILY #90 caps 03/07/20 mcg (5,000 unit) capsule albuterol sulfate 90 mcg/actuation 2 puff inhalation Q6H PRN 01/11/22 aerosol inhaler (ProAir HFA) shortness of breath or wheezing #8.5 grams magic mouthwash 15 ml PO TID sore throat #500 mL 01/14/22 solifenacin 5 mg tablet See Rx Instructions .Route 10/04/22 .COMPLEX #90 tabs Allergies Allergy/AdvReac Type Severity Reaction Status Date / Time No Known Allergies Allergy Verified 10/11/23 08:26 General Stated Complaint: AnimalBite MADDISON: 3 Review of Systems ENT Ears, Nose, Mouth, and Throat: Reports as per HPI and Reports mouth pain Cardiovascular Cardiovascular: Denies syncope Integumentary/Breasts Skin/Breast: Reports as per HPI and Reports wounds Neurologic Neurologic: Denies syncope Exam Const General: cooperative, anxious and not ill appearing Nutritional Appearance: average body habitus Orientation: alert, awake and oriented x3 HENMT Ears: hearing grossly normal bilaterally and external ears normal General nose exam: external nose normal Nose image: 1. Significant complex dog bite laceration to upper lip 2. 3. 4. Face and sinus: laceration right upper lip irregular, flap and actively bleeding Mouth: moist mucous membranes Resp Effort & Inspection: normal respiratory effort, able to speak in complete sentences and no respiratory distress Neuro General: patient alert, patient awake, patient oriented x3, moves all extremities and no focal motor deficits Sensory Exam: no sensory deficits noted Course Vital Signs Vital signs: Vital Signs Temperature 36.5 C 10/11/23 08:23 Pulse 79 10/11/23 08:23 Respiratory Rate 16 10/11/23 08:23 Blood Pressure 178/112 H 10/11/23 08:23 Pulse Oximetry 100 10/11/23 08:23 Temperature 36.5 C 10/11/23 08:23 Temperature Source Temporal Artery Scan 10/11/23 08:23 Pulse 79 10/11/23 08:23 Respiratory Rate 16 10/11/23 08:23 Blood Pressure 178/112 H 10/11/23 08:23 Blood Pressure Position Sitting 10/11/23 08:23 Pulse Oximetry 100 10/11/23 08:23 Oxygen Delivery Method Room Air 10/11/23 08:23 Oxygen Flow Rate 0 10/11/23 08:23 Pain Level 7 10/11/23 08:23 Medical Decision Making Patient presenting to the emergency department for chief complaint of dog bite to the face. He reports approximately 30 minutes prior to arrival his dog bit his right upper lip. Patient denies any other injury or trauma, does report he just recently started immunosuppressant Mavenclad for his MS otherwise has no significant other past medical history. Patient is up-to-date on tetanus as of 2019, no allergies to medications. Physical exam shows a complex flap laceration to the right upper lip through the vermilion border and multiple lacerations. Due to complex nature of wound I do feel that patient would be better served by plastic or facial surgeon. Patient is agreeable to consult and transfer so pending speaking to surgeon will give Unasyn, treat patient's pain, and monitor. Did verify with significant other that the dog is fully up-to-date on all vaccinations and no concern for rabies. Spoke with Anastacia plastic surgery resident at [facility] who did request some imaging to rule out any retained foreign body. Reviewed CT imaging of face that does not show any retained foreign body but does show soft tissue defect. Of note radiologist noted that this was on the left upper lip and cheek which is incorrect as wound is to the right lip/cheek. Spoke with resident who stated it was reasonable for patient to be transferred to their facility. Got acceptance from Dr. Kaur [facility] ED physician for ED to ED transfer and evaluation at their facility. Patient was agreeable to this plan of care. Patient's in stable condition and no significant worsening. Will have patient go via private vehicle and additional dose of pain medication was given prior to discharge to help with pain during private vehicle transfer. Imaging Data Radiologic Study: Imaging: CT Scan Radiologist's impression: Exam(s) PROCEDURE INFORMATION: Exam: CT Maxillofacial Without Contrast Exam date and time: 10/11/2023 9:18 AM Age: 38 years old Clinical indication: Other: Animal bite on face TECHNIQUE: Imaging protocol: Computed tomography of the face without contrast. COMPARISON: CT HEAD WO 02/26/2023 10:55 PM FINDINGS: Orbital cavities: Orbits are normal. Globes are unremarkable. Bones/joints: No acute fracture. Paranasal sinuses: There is mild mucosal disease of bilateral maxillary sinuses. Soft tissues: There is mild subcutaneous left cheek fat stranding with a possible skin ulcer. Other findings: No collections. No radiopaque foreign bodies. IMPRESSION: 1. No collections or radiopaque foreign bodies. 2. Left cheek mild skin thickening with subcutaneous fat stranding and possible skin defect correlated exam for bite location. Dictated and Authenticated by: Cirilo Cade MD. 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 check q 3mos per Neuro ([facility]) Snoring (Acute) Mentioned by ; Ten when exhausted or sleeping on back. 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 Tanner Derm [facility] Angiofibroma of skin of nose (Acute) Dr. Tanner 04/19/2020 [facility] watch and wait RH Elevated blood pressure reading (Acute) Lesion of face (Acute) Right knee pain (Acute) Pt reports no cartilage per XR and PT (?) [ ] XR Report Considering Ortho ref. Leukopenia (Acute) with neutropenia and lymphocytopenia Multiple sclerosis (Chronic ~2014) Low back pain (Acute) Lumbar Radicular Syndrome.. Apparent stenosis evident (working with PT who sees nerve impingement symptoms) Medical History Abnormal semen analysis Surgical History History of wisdom tooth extraction Family History Maternal Grandfather Stomach cancer Non-Hodgkin lymphoma Maternal Grandmother Stomach cancer Non-Hodgkin lymphoma Depression Mother Skin cancer Depression Meniere disease Sister Depression Father Prostate cancer Maternal Uncle Alcohol use disorder Sister Bulimia Paternal Grandmother Dementia Social History Smoking/Tobacco Use Status: Former Tobacco Use Quit Date: 07/25/19 Tobacco: How many years used: 1 Smoking risk assessment performed?: Yes Alcohol Intake: current Alcohol Intake frequency: a few times a month Alcohol type: beer, wine and hard liquor Drug use: Never Substance use type: does not use Adopted: No Caregiver/Support person: No Foster care: No Household members: spouse Housing: house Number of Children: 0 number of grandchildren: 0 Communication Needs: None Education Level: college Details: Bachelor's Do you need help understanding health information?: Never 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, [employer] Sexually active: Yes Do you think of yourself as: straight/heterosexual Current gender identity: male What is your relationship status?: How often do you talk on the phone with friends or family?: once per week How often do you get together with friends or relatives?: once per week Do you belong to any clubs or organized social groups?: no Panel score (0-1 are the most socially isolated patients): 1 What type of physical activity do you participate in: walking, bicycling, swimming, resistance training and yoga Duration: 45-60 minutes/day Frequency: daily Radha/Voodoo: None Special radha needs: No Seatbelt use: always Helmet use: Yes Drive intox or ride w/intox hearse driver: No Working smoke detector in home: Yes Fire extinguisher in home: Yes Carbon monox detector in home: Yes Firearms in home: Yes Firearms unloaded and locked: Yes Do you feel safe at home: Yes Do you feel safe in your relationship?: Yes Discharge Plan Disposition Patient Disposition: Transfer-Acute Inpatient Care Specific Acute Inpt Facility: [facility] Discharge Details Clinical Impression: Open wound of face due to dog bite Primary Care Provider: Temitope Courtney ED Provider: Lukas Bentley Home Meds and New Rx's Prescriptions: No Action albuterol sulfate [ProAir HFA] 90 mcg/actuation HFA aerosol inhaler 2 puff inhalation Q6H PRN (Reason: shortness of breath or wheezing) Qty: 8.5 1RF Rx Instructions: Trial twice a day x 1 week.. coenzyme Q10 [CoQ-10] 100 mg capsule 300 mg PO DAILY multivitamin Tablet 1 tab PO DAILY omega-3 fatty acids [Fish Oil Concentrate] 1,000 mg capsule 1,000 mg PO DAILY alpha lipoic acid 50 mg capsule 50 mg PO DAILY PRN Gilenya 0.5 mg capsule 0.5 mg PO DAILY Qty: 14 3RF Rx Instructions: 2-week fill while awaiting mail order cholecalciferol (vitamin D3) 125 mcg (5,000 unit) capsule 125 mcg PO DAILY Qty: 90 0RF modafinil 100 mg tablet 100 mg PO DAILY PRN magic mouthwash 15 ml PO TID Qty: 500 1RF Rx Instructions: Trial Gargle x 3 days (december repeat)(may swallow) Diphenhydramine (200mL)+Maalox(200mL)+Viscous Lidocaine(100mL) solifenacin 5 mg tablet See Rx Instructions .ROUTE .COMPLEX Qty: 90 3RF Dose Instruction: Take 1 tablet by mouth daily Rx Instructions: Take 1 tablet by mouth daily duloxetine 60 mg capsule,delayed release(DR/EC) 60 mg PO DAILY Mavenclad (7 tablet pack) 10 mg tablet 10 mg PO DAILY solifenacin 5 mg tablet 5 mg PO DAILY Discharge Instructions Additional Instructions: Please go straight to [facility] emergency department. Do not eat or drink anything due to potential medications you could receive at their facility. If you have any emergent changes while on your way to specialty facility please stop and go to closest emergency department for reevaluation. Dr. Kaur is you are accepting physician at [facility] in the emergency department. Discharge Data Discharge Date/Time-TO BE ENTERED AT DEPARTURE: 10/11/23 10:34
[2023-10-11 08:26] VITALS: BP 178/112; PULSE 79; RESP 16; TEMP 36.5; O2SAT 100
[2023-10-11] MEDS: HYDROmorphone 2 MG/ML SYR 1 MG IVP (08:48)
[2023-10-11] MEDS: Normal Saline Flush 10 ML SYR IVP (08:51)
[2023-10-11] MEDS: AMPICILLIN/SULBACTAM 3 GM in Normal Saline 100 ML IVPB (08:58)
--- NOTE | 2023-10-11 08:58 | NUR.NOTE ---
Mike fax number is not answering. Will fax on Friday. Nursing Note:
--- NOTE | 2023-10-11 09:26 | DI.CT_ITS ---
Exam(s) CT FACIAL WO EXAM: CT FACIAL WO CLINICAL HISTORY: dog bite face. TECHNIQUE: Imaging Protocol: Axial computed tomography images with coronal and sagittal reformatted images were created and reviewed COMPARISON: CT CT HEAD WO from 02/26/2023 FINDINGS: CT Face: Facial Bones: No definite fracture is noted in facial bones. Sinuses and Mastoids: There is mild mucosal thickening in the maxillary sinuses bilaterally. The re maining visualized paranasal sinuses and mastoid air cells are clear. Globes, extraocular muscles, optic nerves and retrobulbar fat: Normal. Upper aerodigestive tract: Normal. Mandible and bilateral temporomandibular joints: Normal. Soft tissues: There are soft tissue lacerations involving the right upper lip and cheek. No radiopaq ue foreign bodies are seen. IMPRESSION: 1. There lacerations involving the right upper lip and right cheek with associated soft tissue strand ing. No focal fluid collection is seen to suggest an abscess. 2. No evidence of a facial fracture or radiopaque foreign body. RADIATION DOSE DELIVERED: 611.22mGy.cm Total DLP 611.22mGy.cm Total DLP DATA REPOSITORY: All CT scans at this facility are submitted to the National Radiology Data Registry (NRDR) Dose Index Registry (DIR) with the [employer] (ACR). RADIATION OPTIMIZATION: All CT scans at this facility use at least one of these dose optimization te chniques: automated exposure control; mA and/or kV adjustment per patient size (includes targeted exa ms where dose is matched to clinical indication); or iterative reconstruction.
--- NOTE | 2023-10-11 09:41 | DI.VRAD_ITS ---
PROCEDURE INFORMATION: Exam: CT Maxillofacial Without Contrast Exam date and time: 10/11/2023 9:18 AM Age: 38 years old Clinical indication: Other: Animal bite on face TECHNIQUE: Imaging protocol: Computed tomography of the face without contrast. COMPARISON: CT HEAD WO 02/26/2023 10:55 PM FINDINGS: Orbital cavities: Orbits are normal. Globes are unremarkable. Bones/joints: No acute fracture. Paranasal sinuses: There is mild mucosal disease of bilateral maxillary sinuses. Soft tissues: There is mild subcutaneous left cheek fat stranding with a possible skin ulcer. Other findings: No collections. No radiopaque foreign bodies. IMPRESSION: 1. No collections or radiopaque foreign bodies. 2. Left cheek mild skin thickening with subcutaneous fat stranding and possible skin defect correlated exam for bite location. Dictated and Authenticated by: Cirilo Cade MD. Ordering:PAMELA Gaytan MD
[2023-10-11] MEDS: HYDROmorphone 2 MG/ML SYR 0.5 MG IVP (10:25)
--- NOTE | 2023-10-11 10:37 | NUR.NOTE ---
Nursing Note: 2 mg Vial of Dilaudid was pulled under a discrepancy in the pyxis (pharmacy aware and corrected). Per order (see MAR, 1 mg dilaudid given IVP. Prior to leaving for transfer, 0.5 mg dilaudid administered IVP for pain management leaving 0.5 mg to waist in the vial. Madina Ronquillo RN waisted 0.5mg (0.25 mL) dilaudid with me (Kym Crocker RN) per protocol but unable to document waist in pyxis d/t previous discrepancy. The pyxis did not acknowledge the removal of the dilaudid but pharmacy was made aware of the removal when they were notified of the discrepancy.
== END 2023-10-11 10:34 | disposition short-term general hospital (02) ==
PROVIDERS: Emergency Provider Nurse Practitioner Family; PCP Student in an Organized Health Care Education/Training Program
DX: S01.551A Open bite of lip, initial encounter (principal); W54.0XXA Bitten by dog, initial encounter
CPT/HCPCS: 96365; 96375; 96376; 99285; 70486; J0295; J1170

== ENCOUNTER 2024-02-28 21:06 | Inpatient (IN) | payer OTHER, SELFPAY ==
[2024-02-28] VITALS (11 sets, daily range): BP systolic 143–174; BP diastolic 73–112; PULSE 69–87; RESP 13–25; O2SAT 94–100
[2024-02-28 21:22] LABS: Abs Immature Grans 0.03 10^3/uL (0.0-0.06); Absolute Basophil Count 0.04 10^3/uL (0.0-0.2); Absolute Monocyte Count 0.77 10^3/uL (0.1-0.8); Absolute Neutrophil Count 3.52 10^3/uL (1.2-6.7); Basophils % 0.7 %; Eosinophils % 1.7 %; HCT 40.1 % (40.0-50.0); HGB 14.1 g/dL (13.5-17.5); Immature Grans % 0.5 %; Lymphocytes % 22.6 %; MCH 30.2 pg (27.0-33.0); MCHC 35.2 % (32.0-36.0); MCV 86 fL (80-95); MPV 8.3 fL (8.0-11.0); Monocytes % 13.4 %; Neutrophils % 61.1 %; Platelet Count 187 10^3/uL (130-400); RBC 4.67 10^6/uL (4.36-5.78); RDW 11.7 % (11.8-14.1); RDW-SD 36.5 fL; WBC 5.76 10^3/uL (4.4-10.8)
[2024-02-28] MEDS: fentaNYL 100 MCG/2 ML VIAL IVP (21:24)
[2024-02-28] MEDS: Ondansetron 4 MG/2 ML VIAL IVP (21:24)
[2024-02-28 21:33] LABS: Prothrombin Time 10.4 sec (9.1-11.1)
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
[2024-02-28 21:39] LABS: ALT 30 U/L (16-63); AST 18 U/L (15-37); Albumin 3.9 g/dL (3.4-5.0); Alkaline Phosphatase 64 U/L (46-116); Anion Gap 14.1 mmol/L (3-11); BUN 18 mg/dL (7-18); Bilirubin, Total 0.64 mg/dL (0.2-1.0); CO2 23.9 mmol/L (21.0-32.0); CREATININE 1.3 mg/dL (0.70-1.30); Calcium 8.6 mg/dL (8.5-10.1); Chloride 104 mmol/L (98-107); Estimated GFR 71.67 (mL/min/1.73m2); Glucose 111 mg/dL (74-106); Sodium 142 mmol/L (136-145); Total Protein 6.7 g/dL (6.4-8.2)
[2024-02-28] MEDS: ceFAZolin 2 GM/50 ML BAG IVPB (21:55)
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
[2024-02-28] MEDS: Omnipaque 350 MG/ML 100 ML BTL IJ (22:02)
[2024-02-28] MEDS: Normal Saline - Diluent 50 ML VIAL IJ (22:03)
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
[2024-02-28] MEDS: POTASSIUM CHLORIDE 10 MEQ/100 ML BAG 100 MEQ IVINF (22:13)
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
[2024-02-28] MEDS: HYDROmorphone 2 MG/ML SYR 1 MG IVP (22:58)
[2024-02-28] MEDS: Tranexamic Acid 1,000 MG/10 ML VIAL 1000 MG IVP (22:58)
--- NOTE | 2024-02-28 23:27 | NUR.NOTE ---
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
[2024-02-29] VITALS (12 sets, daily range): BP systolic 100–157; BP diastolic 52–117; PULSE 72–87; RESP 12–18; TEMP 36.5–37.3; O2SAT 95–100; BMI 27.6
[2024-02-29] MEDS: oxyCODONE 5 MG TAB PO ×3 (00:01→20:12)
[2024-02-29] MEDS: POTASSIUM CHLORIDE/D5-0.9%NACL 1,000 ML 80 MEQ IV ×2 (00:12→18:16)
[2024-02-29] MEDS: Ketorolac 15 MG/ML VIAL IVP ×3 (00:18→18:15)
[2024-02-29] MEDS: Normal Saline 500 ML IV (00:18)
[2024-02-29] MEDS: HYDROmorphone 2 MG/ML SYR 1 MG IVP ×3 (01:38→20:53)
[2024-02-29] MEDS: Lidocaine 2% Jelly 11 ML SYR UR (05:13)
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
[2024-02-29 06:31] LABS: HCT 35.5 % (40.0-50.0); HGB 12.3 g/dL (13.5-17.5); MCH 29.9 pg (27.0-33.0); MCHC 34.6 % (32.0-36.0); MCV 86 fL (80-95); MPV 8.3 fL (8.0-11.0); Platelet Count 154 10^3/uL (130-400); RBC 4.12 10^6/uL (4.36-5.78); RDW 11.9 % (11.8-14.1); RDW-SD 37.6 fL; WBC 6.09 10^3/uL (4.4-10.8)
[2024-02-29 06:45] LABS: Anion Gap 9.2 mmol/L (3-11); BUN 15 mg/dL (7-18); CO2 23.8 mmol/L (21.0-32.0); Calcium 8.7 mg/dL (8.5-10.1); Chloride 107 mmol/L (98-107); Estimated GFR 98.18 (mL/min/1.73m2); Glucose 119 mg/dL (74-106); Potassium 4.2 mmol/L (3.5-5.1); Sodium 140 mmol/L (136-145)
[2024-02-29] MEDS: DULoxetine 30 MG CAP 60 MG PO (08:05)
[2024-02-29] MEDS: Multivitamin TAB 1 TAB PO (08:05)
[2024-02-29] MEDS: Normal Saline Flush 10 ML SYR IVP ×4 (08:21→21:13)
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
[2024-02-29] MEDS: Lactated Ringers 1,000 ML 30 ML IV ×2 (09:17→12:08)
[2024-02-29] MEDS: ceFAZolin 2 GM/50 ML BAG 100 GM (09:45)
[2024-02-29] MEDS: TRANEXAMIC ACID/SOD. CHL. 1,000 MG/100 ML BAG 600 MG (09:53)
--- NOTE | 2024-02-29 12:31 | DI.RAD_ITS ---
Exam(s) XR FEMUR LT EXAM: XR FEMUR LT CLINICAL HISTORY: left femur fracture. TECHNIQUE: 2D digital imaging was performed. COMPARISON: No exams were available for comparison FINDINGS: Fluoroscopy provided during ORIF left femur fracture. See procedure report for details. Total fluoroscopy time 3 minutes 15 seconds IMPRESSION: Radiation exposure index/cumulative dose: chris Mclaughlin= 23.26 mGy DATA REPOSITORY: RADIATION DOSE DELIVERED:
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
[2024-02-29] MEDS: ceFAZolin 1 GM/50 ML BAG IVPB (18:16)
[2024-02-29 20:15] LABS: HGB 8.9 g/dL (13.5-17.5)
[2024-02-29] MEDS: Methocarbamol 750 MG TAB PO (21:39)
[2024-03-01] VITALS (8 sets, daily range): BP systolic 107–126; BP diastolic 61–74; PULSE 80–100; RESP 16–19; TEMP 37.1–37.9; O2SAT 98–100
[2024-03-01] MEDS: Ketorolac 15 MG/ML VIAL IVP ×4 (00:01→19:30)
[2024-03-01] MEDS: ceFAZolin 1 GM/50 ML BAG IVPB ×2 (02:02→10:25)
[2024-03-01] MEDS: oxyCODONE 5 MG TAB PO ×3 (03:00→23:14)
[2024-03-01] MEDS: HYDROmorphone 2 MG/ML SYR 1 MG IVP ×2 (05:35→11:41)
--- NOTE | 2024-03-01 05:41 | W.ANESPOSTOP ---
Postoperative Evaluation Date, Time and Location Date Performed: 02/29/24 Time Performed: 14:10 Patient Location: Med/Surg Vital Signs Most Recent Imported Vital Signs: Most Recent Vital Signs Temp Pulse Resp BP Pulse Ox 37.4 C 88 16 113/74 99 03/01/24 00:10 03/01/24 00:10 03/01/24 00:10 03/01/24 00:10 03/01/24 00:10 Pain Score Most Recent Pain Score: Most Recent Pain Score Pain Level [Left Leg] 02/29/24 20:40 Pain Level 03/01/24 05:35 Assessment Mental Status: Awake (Alert & Oriented to Patient Baseline) Airway and Respiratory Function: Patent airway with normal (patient baseline) respiratory exam Cardiovascular Function: Hemodynamically Stable Hydration Status: Adequately Hydrated Nausea & Vomiting: No Nausea or Vomiting Pain: Pain is Moderate or Severe Postoperative Pain Management: Ongoing pain, patient will be managed as an inpatient Peripheral Nerve Block: Patient did not receive a nerve block
[2024-03-01 06:15] LABS: HCT 24.2 % (40.0-50.0); MCHC 34.7 % (32.0-36.0); MCV 86 fL (80-95); MPV 8.8 fL (8.0-11.0); Platelet Count 107 10^3/uL (130-400); RDW 11.9 % (11.8-14.1); RDW-SD 37.2 fL; WBC 4.68 10^3/uL (4.4-10.8)
[2024-03-01] MEDS: Normal Saline Flush 10 ML SYR IVP ×7 (06:19→20:24)
[2024-03-01 06:27] LABS: Anion Gap 7.3 mmol/L (3-11); BUN 13 mg/dL (7-18); CO2 26.7 mmol/L (21.0-32.0); Chloride 106 mmol/L (98-107); Estimated GFR 98.18 (mL/min/1.73m2); Glucose 113 mg/dL (74-106); Magnesium 1.8 mg/dL (1.8-2.4); Potassium 4.1 mmol/L (3.5-5.1); Sodium 140 mmol/L (136-145)
[2024-03-01 06:42] LABS: HGB 8.4 g/dL (13.5-17.5)
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
[2024-03-01] MEDS: Cholecalciferol (Vitamin D3) 1,000 UNIT TAB 1000 UNITS PO (08:28)
[2024-03-01] MEDS: Acetaminophen 500 MG TAB 1000 MG PO ×3 (08:28→23:15)
[2024-03-01] MEDS: DULoxetine 30 MG CAP 60 MG PO (08:28)
[2024-03-01] MEDS: Multivitamin TAB 1 TAB PO (08:31)
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
--- NOTE | 2024-03-01 14:44 | PT.INTREAT ---
PT Notes Visit Reasons: Open Left Femur Fracture Inpatient Physical Therapy Treatment Note [facility] Date: 03/01/24 PRECAUTIONS:WBAT LLE SUBJECTIVE: Mao is agreeable to PT intervention. States that he was very nervous walking earlier. OBJECTIVE: ? PAIN: increased with WB Therapeutic Activities (30755p6): Direct one-on-one instruction in dynamic activities to improve functional performance. ? BED MOBILITY/TRANSFERS? Supine-sit: not assessed ? Sit-supine: SBA with max cues for technique, instructed in assisting LLE with RLE for bed mobility ? Sit-stand: SBA with cues. Slow and cautious completion? Stand-sit: SBA, max cues for technique. Instructed in heel slide during transfer. ? Provided skilled cues and instruction on performance and technique throughout. Instructed in transfer technique and ambulation: employing an assistive device modified weight-bearing status movement sequencing turning and movement with proper form Provided verbal cues for equipment management and technique Provided instruction in gait pattern Patient education regarding pacing and breathing techniques to maximize activity tolerance? GAIT? Assistive Device: FWW? Weight bearing: WBAT LLE Assist: CGA initially; SBA by end of session? Distance:? 20' ? Deviation: slow, cautious ambulation. Denies dizziness, but admits to increasing pain. ? Therapeutic Exercises ([id number]): Direct one-on-one instruction in therapeutic exercises to develop strength, endurance, range of motion and flexibility? Provided skilled instruction in proper exercise performance: Instructed in ankle pumps, quad sets, gluteal sets with legs elevated, 1 minute each. Provided written instructions on white board for hourly completion. Performed LAQ x 3 reps ASSESSMENT:? Tolerating activity progression well. Requires continued PT intervention for progression. Plan to assess stairs tomorrow. PLAN: Continue PT intervention. Recommend outpatient PT upon discharge to allow for functional improvement and edema management. TREATMENT CODE/TIME: [id number] (64460, 11212) Ginger Collazo, PT, DPT [facility]
[2024-03-01] MEDS: Methocarbamol 750 MG TAB PO (17:06)
--- NOTE | 2024-03-01 17:13 | PDOC.CMPRO ---
Date of service: 03/01/24 Time of Service: 17:13 Care Management Progress Note Progress Note Text Progress Note Text: Mao was sitting up in bed when CM met with him. He reported that he is doing well, although it has been painful to mobilize. He stated that he worked with PT today, which went well, although pain was a limiting factor. PT is recommending outpatient PT upon discharge. When discussing discharge plans, Mao stated that he has some dogs at home, but is able to utilize bland in order to be able to safely maneuver around the home. His is also a good support. He reported that his care has been great at [facility], but he is looking forward to returning home. CM will continue to follow. Discharge Potential Discharge Needs: Surgical F/U Appt and Other (Outpatient PT) Anticipated Barriers to Discharge: Medical Status (pain control) Patient/Family Education Needs: Review discharge instructions, discuss Ask Me Three Transportation: Private vehicle Plan: Anticipate Mao will return home once medically cleared with outpatient PT. His will drive him home via private vehicle. He will follow up with Ortho and his discharge plan of care. CM will continue to follow. SDOH(Care Management) Screening Will the Patient Participate in the Screening?: Yes Do you worry about having a steady place to live?: no Problems where you live: no known problems In the past 12 months, have you had to go without electric, gas, oil or water in your home?: no Have you or anyone in your house had to go without enough food to eat?: no Has lack of transportation kept you from medical appointments or from doing things needed for daily living?: no Has anyone in your support network made you feel unsafe for any reason?: no
[2024-03-02] VITALS (8 sets, daily range): BP systolic 104–126; BP diastolic 59–75; PULSE 77–90; RESP 14–18; TEMP 35.8–37.3; O2SAT 95–100
[2024-03-02] MEDS: Ketorolac 15 MG/ML VIAL IVP ×3 (01:21→11:40)
[2024-03-02] MEDS: HYDROmorphone 2 MG/ML SYR 1 MG IVP ×2 (04:27→15:25)
[2024-03-02] MEDS: Methocarbamol 750 MG TAB PO (06:32)
--- NOTE | 2024-03-02 07:55 | PTTR_ITS ---
PT Notes Visit Reasons: Open Left Femur Fracture Inpatient Physical Therapy Treatment Note [facility] Date: 03/02/24 PRECAUTIONS:WBAT LLE SUBJECTIVE: Mao states that he has been working on his exercises. His is present for today's session. They report 2STE home. OBJECTIVE: ? PAIN: 02/01 after ambulation Therapeutic Activities (37860e1): Direct one-on-one instruction in dynamic ac tivities to improve functional performance. ? BED MOBILITY/TRANSFERS? Supine-sit: SBA, assisting LLE with RLE? Sit-supine: SBA assisting LLE with RLE ? Sit-stand: SBA . Slow and cautious completion? Stand-sit: SBA, independent with heel slide during transfer. ? Provided skilled cues and instruction on performance and technique throughout. Discussed home modification and considerations. Consider tub bench for short term. Gait Training ([id number]): Instructed in stair management and ambulation: employing an assistive device modified weight-bearing status movement sequencing turning and movement with proper form Provided verbal cues for equipment management and technique Provided instruction in gait pattern Patient education regarding pacing and breathing techniques to maximize activity tolerance? GAIT? Assistive Device: FWW? Weight bearing: WBAT LLE Assist: Supervision, wheelchair follow? Distance:? 30' ? Deviation: slow, cautious ambulation. ? STAIRS: Instructed in ?step-to stair management with bilat UE support. Performs 6 stairs x 2 with SBA and max cues. ? ASSESSMENT:? Improving independence with transfers and gait. Tolerated stairs well. Appropriate for discharge home with outpatient PT once medically stable. PLAN: Continue PT intervention. Recommend outpatient PT upon discharge to allow for functional improvement and edema management. TREATMENT CODE/TIME: [id number] ([id number], [id number]) Ginger Collazo, PT, DPT [facility]
[2024-03-02] MEDS: DULoxetine 30 MG CAP 60 MG PO (07:56)
[2024-03-02] MEDS: Multivitamin TAB 1 TAB PO (07:56)
[2024-03-02] MEDS: Cholecalciferol (Vitamin D3) 1,000 UNIT TAB 1000 UNITS PO (07:56)
[2024-03-02] MEDS: Acetaminophen 500 MG TAB 1000 MG PO ×2 (07:57→16:25)
[2024-03-02] MEDS: Normal Saline Flush 10 ML SYR IVP ×3 (07:59→15:25)
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
[2024-03-02 09:30] LABS: HCT 21.2 % (40.0-50.0); MCH 30.4 pg (27.0-33.0); MCHC 35.4 % (32.0-36.0); MCV 86 fL (80-95); MPV 9.1 fL (8.0-11.0); Platelet Count 113 10^3/uL (130-400); RBC 2.47 10^6/uL (4.36-5.78); RDW 11.9 % (11.8-14.1); RDW-SD 37.3 fL; WBC 4.32 10^3/uL (4.4-10.8)
[2024-03-02] MEDS: oxyCODONE 5 MG TAB PO (09:33)
[2024-03-02 09:50] LABS: Anion Gap 8.4 mmol/L (3-11); BUN 14 mg/dL (7-18); CO2 24.6 mmol/L (21.0-32.0); CREATININE 1.1 mg/dL (0.70-1.30); Calcium 8.4 mg/dL (8.5-10.1); Chloride 104 mmol/L (98-107); Estimated GFR 87.57 (mL/min/1.73m2); Glucose 130 mg/dL (74-106); Potassium 3.8 mmol/L (3.5-5.1); Sodium 137 mmol/L (136-145)
[2024-03-02 09:55] LABS: HGB 7.5 g/dL (13.5-17.5)
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
[2024-03-02 17:16] LABS: HGB 8.3 g/dL (13.5-17.5)
== END 2024-03-02 17:48 | disposition home or self-care (01) | DRG 481 ==
LOC: ER 23:15 → MS 02-29 02:10
PROVIDERS: Admitting Provider Student in an Organized Health Care Education/Training Program; Emergency Provider Emergency Medicine; PCP Student in an Organized Health Care Education/Training Program; Visit Provider Student in an Organized Health Care Education/Training Program
PROC: 0QS906Z Reposition Left Femoral Shaft with Intramedullary Internal Fixation Device, Open Approach (ICD-10-PCS; CPT 27245; principal; 2024-02-29 05:55)
DX: S72.352B Displaced comminuted fracture of shaft of left femur, initial encounter for open fracture type I or II (principal); D62 Acute posthemorrhagic anemia; G35 Multiple sclerosis; W34.00XA Accidental discharge from unspecified firearms or gun, initial encounter; Z79.899 Other long term (current) drug therapy; E87.6 Hypokalemia; M48.061 Spinal stenosis, lumbar region without neurogenic claudication; M54.16 Radiculopathy, lumbar region; K76.9 Liver disease, unspecified; Z87.891 Personal history of nicotine dependence; D70.9 Neutropenia, unspecified
CPT/HCPCS: 27506; 11012; 36415; 36430; 73552; 73706; 76000; 80048; 80053; 85027; 86850; 86900; 86901; 86920; 96365; 96375; 97110; 97116; 97162; 97530; 99285; 83735; 85014; 85018; 85025; 85610; J0690; J1100; J1170; J1171; J1885; J2250; J2405; J2704; J3010; J3480; J3490; P9016

== ENCOUNTER 2024-03-18 14:13 | Outpatient (CLI) | payer OTHER, SELFPAY ==
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
== END 2024-03-18 14:14 | disposition home or self-care (01) ==
LOC: DIORS 14:14
PROVIDERS: PCP Student in an Organized Health Care Education/Training Program; Referring Provider Student in an Organized Health Care Education/Training Program; Visit Provider Student in an Organized Health Care Education/Training Program
DX: S72.92XB Unspecified fracture of left femur, initial encounter for open fracture type I or II (principal)
CPT/HCPCS: 73552

== ENCOUNTER 2024-04-15 09:57 | Outpatient (CLI) | payer OTHER, SELFPAY ==
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
== END 2024-04-15 09:58 | disposition home or self-care (01) ==
LOC: DIORS 09:57
PROVIDERS: PCP Student in an Organized Health Care Education/Training Program; Referring Provider Student in an Organized Health Care Education/Training Program; Visit Provider Physician Assistant
DX: S72.352D Displaced comminuted fracture of shaft of left femur, subsequent encounter for closed fracture with routine healing (principal); X58.XXXD Exposure to other specified factors, subsequent encounter
CPT/HCPCS: 73552

== ENCOUNTER 2024-05-27 10:17 | Outpatient (CLI) | payer OTHER, SELFPAY ==
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
== END 2024-05-27 10:18 | disposition home or self-care (01) ==
LOC: DIORS 10:17
PROVIDERS: PCP Student in an Organized Health Care Education/Training Program; Visit Provider Student in an Organized Health Care Education/Training Program
DX: S72.352D Displaced comminuted fracture of shaft of left femur, subsequent encounter for closed fracture with routine healing (principal); X58.XXXD Exposure to other specified factors, subsequent encounter
CPT/HCPCS: 73552

== ENCOUNTER 2024-08-23 15:49 | Outpatient (CLI) | payer OTHER, SELFPAY ==
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
== END 2024-08-23 15:50 | disposition home or self-care (01) ==
LOC: DIORS 15:49
PROVIDERS: PCP Student in an Organized Health Care Education/Training Program; Visit Provider Student in an Organized Health Care Education/Training Program
DX: S72.92XD Unspecified fracture of left femur, subsequent encounter for closed fracture with routine healing (principal); X58.XXXD Exposure to other specified factors, subsequent encounter
CPT/HCPCS: 73552

== ENCOUNTER 2024-10-18 12:57 | Outpatient (CLI) | payer OTHER, SELFPAY ==
--- NOTE | 2024-10-18 09:00 | DI.RAD_ITS ---
Exam(s) XR FEMUR LT EXAM: XR FEMUR LT CLINICAL HISTORY: F/U L FEMUR FX. TECHNIQUE: 2D digital imaging was performed. Three views. COMPARISON: There are multiple priors with the most recent from 23 August 2024 FINDINGS: BONES: Intramedullary lot is again noted. There has been continued healing at the femoral fracture s ite. No bony destructive lesion is seen. JOINTS: No dislocation present.. The joint spaces are maintained. SOFT TISSUE: Metallic fragments are again noted around fracture site IMPRESSION: Continued healing of the femoral fracture. DATA REPOSITORY: RADIATION DOSE DELIVERED:
== END 2024-10-18 12:58 | disposition home or self-care (01) ==
LOC: DIORS 12:58
PROVIDERS: PCP Student in an Organized Health Care Education/Training Program; Visit Provider Student in an Organized Health Care Education/Training Program
DX: S72.352D Displaced comminuted fracture of shaft of left femur, subsequent encounter for closed fracture with routine healing (principal); X58.XXXD Exposure to other specified factors, subsequent encounter
CPT/HCPCS: 73552